=== PATIENT | female | born 1975 | race Two or more races ===

== ENCOUNTER 2018-03-08 07:53 | Emergency (ER) | payer OTHER ==
[~2018-03-08] VITALS: Ht 157.5 cm; Wt 69.0 kg
[2018-03-08] MEDS ORDERED: IBUPROFEN 600MG TABLET PO ONE (09:15)
[2018-03-08] MEDS ORDERED: DIPHENHYDRAMINE 25MG CAPSULE PO ONE (09:15)
[2018-03-08] MEDS ORDERED: PREDNISONE 20MG TABLET PO ONE (09:15)
[2018-03-08 09:21] VITALS: BP 157/121
== END 2018-03-08 09:47 | disposition home or self-care (01) ==
LOC: EDBD 07:53 → ER 08:19
DX: R21 Rash and other nonspecific skin eruption (principal); M79.642 Pain in left hand; M79.641 Pain in right hand; R03.0 Elevated blood-pressure reading, without diagnosis of hypertension; M79.89 Other specified soft tissue disorders; Z98.84 Bariatric surgery status
CPT/HCPCS: 99284; J7512; Q0163